=== PATIENT | female | born 1960 | race Caucasian/White ===

== ENCOUNTER 2016-09-18 07:21 | Emergency (ER) | payer OTHER ==
[~2016-09-18] VITALS: Ht 152.4 cm; Wt 85.3 kg
[2016-09-18 07:31] VITALS: BP 147/80
--- NOTE | 2016-09-18 08:46 | RADIOLOGY REPORT ---
EXAMINATION: XR ANKLE, LEFT XR FOOT, LEFT CLINICAL INFORMATION: Left ankle tenderness after injury. Left foot pain and swelling. Evaluate for fracture. COMPARISON: None. TECHNIQUE: Left ankle, 4 views Left foot, 3 views FINDINGS: LEFT ANKLE: The talar dome is well-positioned within the ankle mortise. The tibiotalar joint space is maintained. There is osteophyte formation at the degenerated ankle. The area of mild concavity of the articular surface of the medial talus likely reflects remote osteochondral injury. No acute fractures are seen. There is prominent ossification of the deltoid ligament at the medial ankle, and soft tissues of the medial ankle appears swollen. Also, 0.4 cm focus of heterotopic ossification is seen at the medial ankle. There is prominent enthesophyte formation is present at the fibular tip. No evidence of acute fracture or ankle joint effusion. There is prominent enthesophyte formation at the dorsal and plantar surface of the calcaneus. The Achilles tendon appears mildly thickened at its calcaneal insertion; this suggests possibility of chronic Achilles insertional tendinopathy. LEFT FOOT: Bones of the foot have normal alignment. The Chopart and Lisfranc joints are intact. A 0.4 x 0.7 cm calcaneal ossicle at the lateral margin of the calcaneocuboid joint is likely reflective of remote trauma. No acute fractures are seen. No focal soft tissue swelling within the midfoot or forefoot. IMPRESSION: 1. No evidence of acute osseous injury in the left ankle or foot. 2. 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 3. Prominent ossification projecting from the fibular tip and along the deltoid ligament; findings are likely the sequela of remote ligamentous injury. 4. Calcaneal enthesopathy and possible Achilles insertion tendinopathy.
[2016-09-18] MEDS ORDERED: MOBIC15 M1 PO (08:56)
--- NOTE | 2016-09-18 08:56 | ED ANKLE/FOOT INJURY COMPLAINT ---
History of Present Illness General Chief Complaint: Foot or Ankle Injury Stated Complaint: LEFT ANKLE PAIN Source: patient Exam Limitations: no limitations Vital Signs & Intake/Output Vital Signs & Intake/Output Vital Signs Date Time Temp Pulse Resp B/P Pulse O2 O2 Flow FiO2 Ox Delivery Rate 09/18 0829 98 Room Air 09/18 0731 97.1 69 20 147/80 98 Room Air Allergies Coded Allergies: Penicillins (UNKNOWN 09/18/16) Triage Note: PT TO ED C/O LEFT FOOT PAIN SINCE THIS AM. STATES SHE WENT TO GET OUT OF BED AND COULD NOT PUT ANY WEIGHT ON HER LEFT FOOT. PT STATES SHE WENT TO [place] LAST NIGHT UNSURE IF ANY INJURY OCCURRED. TOP OF LEFT FOOT NOTED TO BE SWOLLEN AND SLIGHTLY BRUISED. REFUSING MEDS IN TRIAGE. Triage Nurses Notes Reviewed? yes Occurred: just prior to arrival Duration: day(s): (1), constant, continues in ED Timing: recent history Severity: moderate, severe Pain/Injury Location: Left: Ankle. No Modifying Factors: none HPI: 56-year-old female comes into emergency room for further evaluation of left ankle pain. Patient reports of the symptoms and going on since she woke up this morning. Patient does admit to doing karate. Patient cannot recall any particular injury yesterday when she did karate. Sharp throbbing pain. Continues. Nonradiating. Denies any other associated symptoms at this time. No fever or chills. No redness. (KAYLIN KELLY) Reconcile Medications Meloxicam (Mobic) 15 MG TABLET 1 TAB PO DAILY pain (SHAWN BROWN,ARNOL Bullock) Past History Travel History Traveled to [place] past 21 day No Medical History Any Pertinent Medical History? none Surgical History Surgical History: non-contributory Psychosocial History What is your primary language Faroese Tobacco Use: Quit >30 days ago ETOH Use: denies use Illicit Drug Use: denies illicit drug use Family History Hx Contributory? No (KAYLIN KELLY) Review of Systems Review of Systems Constitutional: Reports: no symptoms. EENTM: Reports: no symptoms. Respiratory: Reports: no symptoms. Cardiovascular: Reports: no symptoms. GI: Reports: no symptoms. Genitourinary: Reports: no symptoms. Musculoskeletal: Reports: see HPI. Skin: Reports: no symptoms. Neurological/Psychological: Reports: no symptoms. Hematologic/Endocrine: Reports: no symptoms. Immunologic/Allergic: Reports: no symptoms. All Other Systems: Reviewed and Negative (KAYLIN KELLY) Physical Exam Physical Exam General Appearance: well developed/nourished, mild distress Head: atraumatic Eyes: Bilateral: normal appearance. Ears, Nose, Throat: normal ENT inspection, hearing grossly normal Neck: normal inspection Cardiovascular/Respiratory: no respiratory distress Back: normal inspection Leg/Knee/Thigh Left: normal range of motion Ankle Left: soft tissue tenderness, swelling, limited range of motion Foot Left: normal inspection Neuro/Vascular: normal motor function, normal sensation Psychiatric: awake, alert, oriented x 3 Skin: intact, normal color, warm/dry (KAYLIN KELLY) Progress Differential Diagnosis: cellulitis, gout, fracture, dislocation, sprain, contusion Diagnostic Imaging: Viewed by Me: Radiology Read. Discussed w/RAD: Radiology Read. Radiology Impression: EXAM TYPE: RAD - XRY-ANKLE 3 OR MORE VIEWS L; XRY-FOOT COMPLETE, LEFT EXAMINATION: XR ANKLE, LEFT XR FOOT, LEFT CLINICAL INFORMATION: Left ankle tenderness after injury. Left foot pain and swelling. Evaluate for fracture. COMPARISON: None. TECHNIQUE: Left ankle, 4 views Left foot, 3 views FINDINGS: LEFT ANKLE: The talar dome is well-positioned within the ankle mortise. The tibiotalar joint space is maintained. There is osteophyte formation at the degenerated ankle. The area of mild concavity of the articular surface of the medial talus likely reflects remote osteochondral injury. No acute fractures are seen. There is prominent ossification of the deltoid ligament at the medial ankle, and soft tissues of the medial ankle appears swollen. Also, 0.4 cm focus of heterotopic ossification is seen at the medial ankle. There is prominent enthesophyte formation is present at the fibular tip. No evidence of acute fracture or ankle joint effusion. There is prominent enthesophyte formation at the dorsal and plantar surface of the calcaneus. The Achilles tendon appears mildly thickened at its calcaneal insertion; this suggests possibility of chronic Achilles insertional tendinopathy. LEFT FOOT: Bones of the foot have normal alignment. The Chopart and Lisfranc joints are intact. A 0.4 x 0.7 cm calcaneal ossicle at the lateral margin of the calcaneocuboid joint is likely reflective of remote trauma. No acute fractures are seen. No focal soft tissue swelling within the midfoot or forefoot. IMPRESSION: 1. No evidence of acute osseous injury in the left ankle or foot. 2. 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 3. Prominent ossification projecting from the fibular tip and along the deltoid ligament; findings are likely the sequela of remote ligamentous injury. 4. Calcaneal enthesopathy and possible Achilles insertion tendinopathy. (KAYLIN KELLY) Plan of Care: Orders Procedure Date/time Status Durable Medical Equipment 09/18 0857 Active Departure Departure Disposition: HOME OR SELF CARE Condition: Stable Clinical Impression Primary Impression: Left ankle sprain Referrals: ESTER BROWN,CAMMY Schaffer (PCP/Family) MAXIMO BROWN,DONAVAN Additional Instructions: Ice. Rest. Elevation. Take Mobic has described. Follow-up with orthopedic doctor if not better in 3-5 days. Please note that there might be incidental findings in your evaluation that are unrelated to the current emergency department visit. Please notify your primary care doctor about this emergency department visit in order to obtain and review all of the testing performed so that these incidental findings can be monitored as needed. If you had an x-ray performed, please understand that some fractures may not be seen on the initial set of x-rays. If your symptoms persist you might need a repeat set of x-rays to check for such a fracture. If you had a laceration evaluated, please understand that foreign bodies such as glass or wood may not be visible to the naked eye or on plain x-rays. If the wound becomes red, swollen, increasingly more painful or if there is any drainage from the wound, please have it reevaluated by a physician for the possibility of a retained foreign body. Departure Forms: Customer Survey General Discharge Information Prescriptions: Current Visit Scripts Meloxicam (Mobic) 1 TAB PO DAILY #12 TAB Comments Patient clinically looks well. Patient is nontoxic appearing. Patient is in no apparent distress. No evidence of acute fracture. Follow-up with orthopedic doctor. Return if any other concerns. (KAYLIN KELLY) PA/ELECTRON BEAM OPERATOR Co-Sign Statement Statement: ED Attending supervision documentation- [x] I saw and evaluated the patient. I have also reviewed all the pertinent lab results and diagnostic results. I agree with the findings and the plan of care as documented in the PA's/ELECTRON BEAM OPERATOR's documentation. [] I have reviewed the ED Record and agree with the PA's/ELECTRON BEAM OPERATOR's documentation. [] Additions or exceptions (if any) to the PAs/ELECTRON BEAM OPERATOR's note and plan are summarized below: [] (SHAWN BROWN,ARNOL Bullock) Procedures Splinting Location: left ankle Splint: pneumatic boot Splint Applied By: splint applied by me Pre-Proc Neuro Vasc Exam: normal Post-Proc Neuro Vasc Exam: normal (KAYLIN KELLY)
== END 2016-09-18 09:00 ==
LOC: ERH 07:21
DX: S93.402A Sprain of unspecified ligament of left ankle, initial encounter (principal); X58.XXXA Exposure to other specified factors, initial encounter; Y93.75 Activity, martial arts; Y92.9 Unspecified place or not applicable
CPT/HCPCS: 73610-LT; 73630-LT